=== PATIENT | female | born 1950 | race Caucasian/White ===

== ENCOUNTER 2016-09-02 07:38 | Emergency (ER) | payer OTHER, MEDICARE ==
[~2016-09-02] VITALS: Ht 157.5 cm; Wt 103.1 kg
[~2016-09-02 07:38] MED LIST: ACCUPRIL40 MG PO; ACETAMINOPHEN1 EAC4 PO; ADVAIR; ADVAIR 100/501 DISK IH; ADVAIR 250/501 DISK IH; AZATHIOPRINE50 MG PO; Ascorbic Acid PO; Azathioprine PO; BENADRYL50 MG PO; BENAZEPRIL HCL40 MG PO; CALCIUM 500 +1 EACH PO; CALCIUM 600 +1 EA16 PO; CEPHALEXIN500 MG PO; COMBIGAN O20 DROP/5 BOTH EYES; CYANOCOBAL1000 MCG/1 IM; CYANOCOBAL1000 MCG/2 IM; CYANOCOBALAM IM; Combigan Ophth Soln BOTH EYES; DICLOFENAC SODI75 MG PO; DITROPAN XL5 MG PO; Diclofenac Sodium PO; FERRO-TIME325 MG PO; FISH OIL 1,0001 EA10 PO; FLONASE16 G1 BOTH NARES; FOLIC ACID1 MG PO; FORTAMET500 M1 PO; GABAPENTIN300 MG PO; GABAPENTIN400 MG PO; GEMFIBROZIL600 MG PO; GLIPIZIDE5 MG PO; HYOSCYAMINE0.375 MG PO; IRON325 MG PO; LANSOPRAZOLE30 MG PO; LUMIGAN 0.50 DROP/2. BOTH EYES; LUMIGAN 0.50 DROP/22 BOTH EYES; Lansoprazole PO; Lumigan 0.01% Ophth BOTH EYES; METFORMIN HCL500 MG PO; METOPROLOL SUC100 MG PO; METOPROLOL SUCC25 MG PO; Metformin HCl PO; NORCO 5/3251 TABLET PO; OCUVITE TABLET1 EACH PO; ONDANSETRON HCL4 MG PO; OSCIMIN SR0.375 MG PO; PREDNISONE20 MG PO; PROTONIX40 MG PO; REFRESH EYE DR1 EACH BOTH EYES; REMICADE10 MG/ML IV; TOPROL XL100 MG PO; TOPROL XL50 MG PO; TRAMADOL HCL50 MG PO; TUMERIC PO; TYLENOL EXTRA500 MG PO; TYLENOL PM1 CAPLET PO; Tylenol PM PO; VENTOLIN HFA18 GM IH; VESICARE5 MG PO; VITAMIN C1000 MG PO; VITAMIN D2000 UNIT PO; Vicodin,Norco 5/325 PO; Vitamin B-12 IM; Vitamin D PO; ZOFRAN4 MG PO
[2016-09-02 08:04] LABS: HEMATOCRIT 32.7 % (36.0-46.0); MCH 31.3 PG (29.0-34.0); MCHC 33.6 G/DL (30.0-36.0); MCV 93.2 FL (83-99); MEAN PLAT.VOLUME 9.3 uM^3 (9.5-12.4); PLATELET COUNT 207 K/uL (156-360); RBC DIS.WIDTH-CV 14.3 % (11.8-14.6); RBC DIS.WIDTH-SD 46.7 % (39-53); RED BLOOD COUNT 3.51 M/uL (3.80-5.20); WHITE BLOOD COUNT 5.8 K/uL (4.1-10.2)
[2016-09-02 08:15] LABS: CHLORIDE 108 mEq/L (99-109); POTASSIUM 4.3 mEq/L (3.7-5.4); SODIUM 141 mEq/L (136-147)
[2016-09-02 08:17] LABS: GLUCOSE 109 mg/dL (70-99)
[2016-09-02 08:18] LABS: ANION GAP 10 MEQ/L (2-14)
[2016-09-02 08:19] LABS: TOTAL BILIRUBIN 0.4 mg/dL (0.0-1.0)
[2016-09-02 08:21] LABS: ALKALINE PHOSPHATASE 85 IU/L (3-129); GFR ESTIMATE (CALCULATED) 53 mL/min/
[2016-09-02 08:22] LABS: UREA NITROGEN (BUN) 22 mg/dL (9-23)
[2016-09-02 08:45] LABS: ADD MIUA? YES; BILIRUBIN NEGATIVE; BLOOD NEGATIVE; COLOR YELLOW ((YELLOW)); GLUCOSE (STRIP) NEGATIVE; KETONES NEGATIVE; LEUKOCYTES SMALL; NITRITE NEGATIVE; PROTEIN (STRIP) NEGATIVE; SPECIFIC GRAVITY 1.012 (1.000-1.030); UROBILINOGEN 0.2 MG/DL (0.2-1.0)
[2016-09-02 09:00] LABS: BACTERIA NONE SEEN; CASTS NONE SEEN /LPF; CRYSTALS NONE SEEN; EPITHELIAL CELLS 1+; MUCUS NONE SEEN; PATHOLOGICAL CAST NONE SEEN; RED BLOOD CELLS 0-5 /HPF (0-5); SMALL ROUND CELL NONE SEEN; UCUL ADDED? NO; YEAST-LIKE CELL NONE SEEN
[2016-09-02] MEDS ORDERED: CITRATE OF MAG296 ML PO (11:54)
[2016-09-02 12:15] VITALS: BP 110/52
== END 2016-09-02 12:10 | disposition home or self-care (01) ==
LOC: EME 07:38
DX: K59.00 Constipation, unspecified (principal); R10.9 Unspecified abdominal pain; K50.90 Crohn's disease, unspecified, without complications; E11.9 Type 2 diabetes mellitus without complications; I10 Essential (primary) hypertension; Z88.1 Allergy status to other antibiotic agents
CPT/HCPCS: 74020; 74177; 80053; 81003; 85027; 99281; 99284; J7030